=== PATIENT | female | born 1975 | race Caucasian/White ===

== ENCOUNTER → 2020-02-04 11:02 | Outpatient (CLI) | payer OTHER, SELFPAY ==
--- NOTE | ~2020-02-04 | MM_ITS ---
EXAMINATION: MM screening figueroa BI w julieth HISTORY: Screening mammogram TECHNIQUE: Craniocaudal and mediolateral oblique 3-D tomosynthesis images were obtained and synthetic 2-D images were generated. CAD analysis was submitted and interpreted. COMPARISON: No prior mammogram is available for comparison at this institution. BREAST PARENCHYMAL COMPOSITION: The breasts are heterogeneously dense, which may obscure small masses . FINDINGS: There is no evidence of suspicious mass, calcification, or architectural distortion to sugg est malignancy in either breast. There has been no suspicious interval change. IMPRESSION: 1. No mammographic evidence of malignancy. 2. Recommend routine screening mammography in one year. BI-RADS Category 1: Negative Reviewed, dictated and finalized at location A.
== END ==
PROVIDERS: Visit Provider Obstetrics & Gynecology
DX: Z12.31 Encounter for screening mammogram for malignant neoplasm of breast (principal)
CPT/HCPCS: 77063; 77067

== ENCOUNTER → 2020-02-07 18:07 | Outpatient (CLI) | payer OTHER, SELFPAY ==
--- NOTE | ~2020-02-07 | US_ITS ---
EXAMINATION: US pelvic complete w TV DATE: 02/07/2020 18:30 INDICATION: Excessive and frequent menstruation TECHNIQUE: Multiple transabdominal and endovaginal sonographic images of the pelvis were obtained. COMPARISON: None. FINDINGS: The uterus measures 7.2 x 4.7 x 5.7 cm. There are multiple isoechoic and hypoechoic lesions of the uterus, measuring up to 1.4 cm, with the appearance of intramural fibroids. One appears to co ntain calcification. The IUD appears to be in expected position. The endometrial complex measures 5 m m. The right ovary measures 2.3 x 2.6 x 2.1 cm. The left ovary measures 3.1 x 2.1 x 1.5 cm. There is normal vascular flow in the ovaries. There is no free fluid in the pelvis. IMPRESSION: 1. Multiple uterine fibroids. Reviewed, dictated and finalized at location A.
== END ==
PROVIDERS: Visit Provider Obstetrics & Gynecology
DX: N92.0 Excessive and frequent menstruation with regular cycle (principal); D25.9 Leiomyoma of uterus, unspecified
CPT/HCPCS: 76830; 76856

== ENCOUNTER 2020-10-17 10:26 | Emergency (ER) | payer OTHER, SELFPAY ==
[2020-10-17 10:37] VITALS: BP 131/82; PULSE 113; RESP 20; TEMP 36.6; O2SAT 100
--- NOTE | 2020-10-17 10:39 | ED.EAR ---
HPI - Ear Problem General Chief complaint: Ear Stated complaint: SORE THROAT Time Seen by Provider: 10/17/20 10:40 Source: patient Mode of arrival: ambulatory Limitations: no limitations History of Present Illness HPI Narrative: Tonya Roberts is a 45 yo female with no PMH who comes here with severe sore throat that started last night. No fever, cough, N/V/D, has been in house for 3 days, around no one. States has sinus issues and takes meds for same Related Data Allergies Allergy/AdvReac Type Severity Reaction Status Date / Time Sulfa (Sulfonamide Allergy Unknown Rash Verified 10/17/20 10:33 Antibiotics) Review of Systems Review of Systems: Narrative: CONSTITUTIONAL: Denies fever, chills, sweats. EYES: Denies visual changes, redness, discharge. ENT: Denies rhinorrhea, congestion, has severe sore throat, no otalgia. CARDIOVASCULAR: Denies chest pain, palpitations, edema. RESPIRATORY: Denies dyspnea, wheezing, cough GASTROINTESTINAL: Denies abdominal pain, nausea, vomiting, diarrhea. GENITOURINARY: Denies dysuria, hematuria, abnormal discharge SKIN: Denies rash or itching. NEUROLOGIC: Denies numbness, or focal weakness. PSYCHIATRIC: Denies anxiety or depression. [facility] Past Medical History Medical History No acute medical problems Family History Family History Mother Hypertension Social History Social History (Updated 10/17/20 @ 10:50 by Korin Lemos CNP) Smoking status: Former smoker Alcohol intake: current Comments At time of signature, I agree with nursing past medical, surgical, social and family history. There is no relevant family history pertinent to the presenting complaint. Exam Narrative: Exam Narrative: GENERAL: This is a well-nourished, well-developed patient, in moderate distress with swelling HEAD: normocephalic, atraumatic. EYES: clear/white. Vision is grossly intact. EARS: External ears normal, auditory canals clear and without drainage, TMs normal without perforation. Hearing grossly intact. NOSE: External nose normal without nasal discharge, nares with redness, no rhinorrhea. THROAT: Mucous membranes moist, posterior pharynx erythema with swelling on the right side NECK: Neck supple, large submandibular lymph node that is tender and enlarged CARDIOVASCULAR: Regular rate and rhythm without murmurs, gallops, or rubs. RESPIRATORY: Clear to auscultation. Breath sounds equal bilaterally. No wheezes, rales, or rhonchi. GASTROINTESTINAL: Abdomen soft, non-tender, SKIN: warm, intact with no suspicious lesions or rash, good texture and turgor. NEURO: awake, alert, and oriented to person, place and time. There were no obvious focal neurologic abnormalities. Steady gait EXTREMITIES: Normal range of motion. BACK: Nontender without deformity Course Course Emergency Course: Patient came to express care with severe sore throat particularly on the right Strep test showed negative--monitor symptoms for fever or other known Covid symptoms such as loss of taste or smell, start betty Tylenol ibuprofen for pain Started on prednisone, viscous lidocaine, betty- PCN- question if partonsillar abscrss due to location Directions to push fluids and finish medications as directed Vital Signs Vital signs: Vital Signs Temperature 97.9 F 10/17/20 10:37 Pulse Rate 113 H 10/17/20 10:37 Respiratory Rate 20 10/17/20 10:37 Blood Pressure 131/82 10/17/20 10:37 Pulse Oximetry 100 10/17/20 10:37 Temperature 97.9 F 10/17/20 10:37 Pulse Rate 113 H 10/17/20 10:37 Respiratory Rate 20 10/17/20 10:37 Blood Pressure 131/82 10/17/20 10:37 Pulse Oximetry 100 10/17/20 10:37 Medical Decision Making Differential Diagnosis Differential Diagnosis: Pharyngitis versus strep versus adenitis paratonsillar abscess Vital Signs Vital Signs: Vital Signs Temperature 97.9
== END 2020-10-17 11:12 | disposition home or self-care (01) ==
PROVIDERS: Emergency Provider Nurse Practitioner
DX: J02.9 Acute pharyngitis, unspecified (principal); Z20.828 Contact with and (suspected) exposure to other viral communicable diseases; Z87.891 Personal history of nicotine dependence
CPT/HCPCS: 87081; 87880; 99203; G0463

== ENCOUNTER 2020-10-17 11:12 | Outpatient (NON) | payer OTHER, SELFPAY ==
[2020-10-20 01:48] LABS: SARS-CoV-2 RNA PCR Negative
== END 2020-10-17 11:13 ==
LOC: ANHCOVIDDT 11:13
PROVIDERS: Visit Provider Nurse Practitioner
DX: J02.9 Acute pharyngitis, unspecified (principal); Z20.828 Contact with and (suspected) exposure to other viral communicable diseases
CPT/HCPCS: 87635; C9803; U0003

== ENCOUNTER → 2021-04-30 10:37 | Outpatient (CLI) | payer OTHER, SELFPAY ==
--- NOTE | ~2021-04-30 | MM_ITS ---
EXAMINATION: MM screening figueroa BI w julieth HISTORY: Screening mammogram TECHNIQUE: Craniocaudal and mediolateral oblique 3-D tomosynthesis images were obtained and synthetic 2-D images were generated. CAD analysis was submitted and interpreted. COMPARISON: 02/04/2020 bilateral digital screening mammogram BREAST PARENCHYMAL COMPOSITION: The breasts are heterogeneously dense, which may obscure small masses . FINDINGS: 6 mm circumscribed opacity in the lower inner right breast (MLO Tomosynthesis image 39/86). Otherwise there is no evidence of suspicious mass, calcification, or architectural distortion to sugg est malignancy in either breast. There has been no other suspicious interval change. IMPRESSION: 1. 6 mm circumscribed lower inner left breast mass 2. Diagnostic left mammogram and left breast ultrasound examination are recommended. BI-RADS Category 0: Incomplete: Needs additional imaging evaluation. Reviewed, dictated and finalized at location A. IMPRESSION: 1. 6 mm circumscribed lower inner left breast mass 2. Diagnostic left mammogram and left breast ultrasound examination are recomme nded. BI-RADS Category 0: Incomplete: Needs additional imaging evaluation.
== END ==
PROVIDERS: Visit Provider Obstetrics & Gynecology
DX: Z12.31 Encounter for screening mammogram for malignant neoplasm of breast (principal); R92.8 Other abnormal and inconclusive findings on diagnostic imaging of breast
CPT/HCPCS: 77063; 77067

== ENCOUNTER → 2021-06-05 09:11 | Outpatient (CLI) | payer OTHER, SELFPAY ==
--- NOTE | ~2021-06-05 | MMUS_ITS ---
EXAMINATION: MM diagnostic figueroa LT w julieth, US breast LT limited HISTORY: Left breast mass on screening mammogram TECHNIQUE: Additional 3-D tomosynthesis images of the left breast were performed and synthetic 2-D im ages were generated. CAD analysis was submitted and interpreted. High resolution limited left breast ultrasound was performed. COMPARISON: 04/30/2021, 02/04/2020 BREAST PARENCHYMAL COMPOSITION: The breasts are heterogeneously dense, which may obscure small masses . FINDINGS: MAMMOGRAPHIC FINDINGS: There is a 5 mm round, obscured, equal density mass in the anterior third of the inner breast at the 9:00 location 4.5 cm from the nipple. ULTRASOUND: There is a 10 mm x 6 mm oval, circumscribed, parallel, complex cystic and solid mass at the 9:00 loca tion 5 cm from the nipple with no posterior features or internal vascularity, possibly clustered micr ocysts. There is a 6 mm cyst at the 8:00 location 5 cm from the nipple and a 3 mm cyst at the 7:00 lo cation 6 cm from the nipple. IMPRESSION: 1. Likely clustered microcysts at the 9:00 location 5 cm from the nipple. 2. Recommend 6 month follow-up left diagnostic mammogram and ultrasound. BI-RADS category 3, probably benign findings. Reviewed, dictated and finalized at location A. IMPRESSION: 1. Likely clustered microcysts at the 9:00 location 5 cm from the nipple. 2. Recommend 6 month follow-up left diagnostic mammogram and ultrasound. BI-RADS category 3, probably benign findings.
== END ==
PROVIDERS: Visit Provider Obstetrics & Gynecology
DX: R92.8 Other abnormal and inconclusive findings on diagnostic imaging of breast (principal)
CPT/HCPCS: 76642; 77061; 77065; G0279

== ENCOUNTER → 2022-07-10 10:09 | Outpatient (CLI) | payer OTHER, SELFPAY ==
--- NOTE | ~2022-07-10 | MM_ITS ---
EXAMINATION: MM screening figueroa BI w julieth HISTORY: Screening mammogram TECHNIQUE: Craniocaudal and mediolateral oblique 3-D tomosynthesis images were obtained and synthetic 2-D images were generated. CAD analysis was submitted and interpreted. COMPARISON: 06/05/2021 diagnostic left mammogram and limited left breast ultrasound 04/30/2021 and 02/04/2020 bilateral screening mammogram examinations BREAST PARENCHYMAL COMPOSITION: The breasts are heterogeneously dense, which may obscure small masses . FINDINGS: There is no evidence of suspicious mass, calcification, or architectural distortion to sugg est malignancy in either breast. There has been no suspicious interval change. IMPRESSION: 1. No mammographic evidence of malignancy. 2. Recommend routine screening mammography in one year. BI-RADS Category 1: Negative Reviewed, dictated and finalized at location A.
== END ==
PROVIDERS: PCP Obstetrics & Gynecology; Visit Provider Obstetrics & Gynecology
DX: Z12.31 Encounter for screening mammogram for malignant neoplasm of breast (principal)
CPT/HCPCS: 77063; 77067

== ENCOUNTER → 2023-09-28 16:29 | Outpatient (CLI) | payer OTHER, SELFPAY ==
--- NOTE | ~2023-09-28 | MM_ITS ---
EXAMINATION: MM screening figueroa BI w julieth HISTORY: Screening TECHNIQUE: Craniocaudal and mediolateral oblique 3-D tomosynthesis images were obtained and synthetic 2-D images were generated. CAD analysis was submitted and interpreted. COMPARISON: Comparison to multiple prior studies sequentially, with oldest reviewed study dated 02/03. BREAST PARENCHYMAL COMPOSITION: The breasts are heterogeneously dense, which may obscure small masses FINDINGS: There is no evidence of suspicious mass, calcification, or architectural distortion to sugg est malignancy in either breast. There has been no suspicious interval change. IMPRESSION: 1. No mammographic evidence of malignancy. 2. Recommend routine screening mammography in one year. BI-RADS Category 1: Negative Reviewed, dictated and finalized at location A. ITY TELLER
== END ==
PROVIDERS: PCP Obstetrics & Gynecology; Visit Provider Obstetrics & Gynecology
DX: Z12.31 Encounter for screening mammogram for malignant neoplasm of breast (principal)
CPT/HCPCS: 77063; 77067

== ENCOUNTER 2024-04-05 08:04 | Outpatient (CLI) | payer OTHER, SELFPAY ==
--- NOTE | ~2024-04-05 | US_ITS ---
EXAMINATION: US pelvic complete w TV DATE: 04/05/2024 08:58 INDICATION: Abnormal uterine vaginal bleeding TECHNIQUE: Multiple transabdominal and endovaginal sonographic images of the pelvis were obtained. COMPARISON: None. FINDINGS: The uterus measures 7.5 x 4.8 x 5.1 cm. There is a combination of small hypoechoic and hyperechoic fi broids in the uterus the largest at the fundus appearing hypoechoic measuring 1.[address] maximal [address] ter. The next largest is a 1.4 similar fibroid also at the fundus which is more hyperechoic with shad owing calcification. The endometrial complex measures 8 mm in thickness. There is a T-shaped linear e chogenic and shadowing IUD within the endometrial canal. On the cine sagittal images of the uterus th ere appears to be an ovoid solid nodular soft tissue density within the endometrial canal measuring a pproximately 2.2 x 0.6 cm with internal vascular flow on color Doppler. There are multiple small hype rechoic and shadowing calcifications within the endometrial complex some of which are within the cent ral soft tissue. The right ovary measures 2.3 x 1.1 x 1.2 cm. The left ovary measures 1.8 x 1.2 x 1.2 cm. 11 mm anechoic follicle in the right ovary. There is normal vascular flow in both ovaries. There is no free fluid in the pelvis. IMPRESSION: 1. Fibroid uterus with a 2.2 x 0.6 cm vascular soft tissue nodules within the endometrial canal sugge stive of either an endometrial polyp or submucosal fibroid although differential would include endome trial hyperplasia or carcinoma. Consider hysteroscopy for further evaluation. 2. IUD in expected position within the endometrial canal. Reviewed, dictated and finalized at location B. IMPRESSION: 1. Fibroid uterus with a 2.2 x 0.6 cm vascular soft tissue nodules within the e ndometrial canal suggestive of either an endometrial polyp or submucosal fibroi d although differential would include endometrial hyperplasia or carcinoma. Con certified ophthalmic technician hysteroscopy for further evaluation. 2. IUD in expected position within the endometrial canal.
== END 2024-04-05 08:05 | disposition home or self-care (01) ==
PROVIDERS: PCP Family Medicine; Visit Provider Student in an Organized Health Care Education/Training Program
DX: N93.9 Abnormal uterine and vaginal bleeding, unspecified (principal); D25.9 Leiomyoma of uterus, unspecified; Z97.5 Presence of (intrauterine) contraceptive device
CPT/HCPCS: 76830; 76856

== ENCOUNTER 2024-05-30 01:00 | Day surgery (SDC) | payer OTHER, SELFPAY ==
[2024-05-19 08:58] VITALS: BMI 28.9
--- NOTE | 2024-05-19 09:04 | PC.NURSE ---
Report to the Outpatient Waiting Room, entrance under the green pavilion located off [facility], at time _0800_ on date _[id number]_. Planned Procedure Time: _1000_. Time changes happen often and if your time is changed the preop area will call you the afternoon before. - You and your visitor will be asked to self-screen and do not enter if you have any COVID symptoms. - A mask is optional within the hospital at this time. Patients may have clear liquids (water, carbonated beverages, clear teas, apple juice) until 3 hours prior to surgery with a maximum of 20 ounces. - No food from midnight until time of surgery - Infants may have breast milk until 4 hours before surgery, formula 6 hours prior to surgery. - Children will be allowed to drink immediately following surgery. If applicable, please bring a bottle or sippy cup to assist with drinking. Juice, water, soda, and popsicles are readily available. For infants on formula, please bring formula the day of surgery. Pacifiers are allowed. Take the following medications with a SIP of water the morning of surgery: ____Levothyroxine DO NOT STOP ANY OF YOUR OTHER PRESCRIPTION MEDICATIONS PRIOR TO SURGERY ?EXCEPT THE FOLLOWING Medications to discontinue per physician Multivitamin Date to take last psle___[id number] Please no make-up, nail slovenian, hairspray, perfume, deodorant, or body powder the day of surgery. No jewelry (including any body piercings) or valuables the day of surgery, leave them at home. Please take a shower or bath the night before, or the morning of, surgery with an antibacterial soap. Wear comfortable, loose fitting clothing. - Jewelry must be removed prior to entering the operating room. Rings and piercings that are not removed may be cut off. - The hospital will not accept responsibility for valuables. - Please leave all valuables, including medications, at home the day of surgery. If you are going home after surgery, a licensed utility driver must drive you home. - NO public transportation without another adult if you receive anesthesia. - We recommend that an adult stay with you for 24 hours following discharge. - We also recommend that you do not drive, make important decision, drink alcoholic beverages, or take any drugs that were not prescribed by your health care provider for at least 24 hours after your discharge time. Follow any additional instructions given to you from your surgeon. If you or anyone in your household have experienced Covid symptoms in the past week, please notify your surgeon or the nurse liaison at the phone number below for possible testing. Telephone instructions given to _Denise____and asked if any additional questions and then verbalized understanding. Patient advised to call surgeon office or pre surgery nurse liaison [phone] if any additional questions.
--- NOTE | 2024-05-30 06:41 | WPDHPUPDATE1 ---
History and Physical Update Update Date/Time: 05/30/24 06:41 History and Physical has been reviewed, including an updated exam of the patient. There are NO changes in the patient's condition. Risks, benefits, and alternatives have been discussed and questions answered. Patient agrees to proceed with HSC/D&C/IUD removal.
[2024-05-30 08:30] VITALS: BP 151/87; PULSE 79; RESP 14; TEMP 36.8; O2SAT 99
[2024-05-30] MEDS: ACETAMINOPHEN 500 MG TABLET 1000 MG PO (08:30)
[2024-05-30] MEDS: LACTATED RINGERS 1,000 ML 30 ML IV CONT (08:30)
--- NOTE | 2024-05-30 09:44 | WPDANESEPPF ---
Anes - Initial Pre Proc Eval Procedure: Operation Date: 05/30/24 10:00 Proposed Procedures p Hysteroscopy Dilation and Curettage with Intrauterine Device Removal - Veronika Toney MD Date/Time: 05/30/24 09:44 Surgeon: Veronika Toney MD Pre Op Diagnosis: abnormal uterine bleeding Patient Data Age: 48 Gender: F Height: 1.83 m Weight: 95.5 kg Last Vital Signs Temp 98.3 F 05/30/24 08:30 Pulse 79 05/30/24 08:30 Resp 14 05/30/24 08:30 BP 151/87 H 05/30/24 08:30 Pulse Ox 99 05/30/24 08:30 O2 Del Method Room Air 05/30/24 08:30 Allergies Allergy/AdvReac Type Severity Reaction Status Date / Time Sulfa (Sulfonamide Allergy Unknown Rash Verified 05/30/24 08:45 Antibiotics) Home Medications Medication Instructions Recorded Confirmed Type levonorgestrel 21 mcg/24 hr (up to 1 device intrauterine ONCE 02/19/22 05/19/24 History 8 years) 52 mg intrauterine device (Mirena) [id number] 8 mg-folic 400 1 tablet PO DAILY 03/04/23 05/19/24 History mcg-K 50 mcg-lutein 300 mcg tablet (Multivitamin Women 50 Plus) levothyroxine 50 mcg tablet 50 mcg PO DAILY #90 tabs 03/09/24 05/30/24 Rx cetirizine 10 mg tablet (Zyrtec) 10 mg PO DAILY 05/19/24 05/19/24 History Patient hx anesthesia problems: none Family hx anesthesia problems: none Results Review: All pre-operative results and documents have been reviewed as part of the pre-operative evaluation. 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 Seasonal allergic rhinitis Surgical History Surgical History H/O gynecological procedure Mirena IUD Insertion 01/04/2020 History of colposcopy (~2020) Hx of appendectomy (~2007) Family History Family History Mother Hypertension Father Lung cancer Social History Social History (Updated 05/03/24 @ 08:11 by Bertha John MA) Smoking packs per day: 1 Smoking cigarettes per day: 20.0 Years smoked: 20 Smoking pack-years: 20.00 Smoking status: Former smoker Tobacco type: cigarettes Smoking end date: 05/19/12 Alcohol intake: current Drinks per week: 12 Alcohol use details: socially Substance use: never Substance use type: does not use Do You Feel Safe in your Home?: Yes Lack of Transportation: No Lack of Food: Never True Current Housing: I Have Housing Concerned About Future Housing: No Difficulty Paying Gas/Electric Bills: No Difficulty Paying for Meds: No Currently Unemployed: No Education: Bachelor's Degree Difficulty w/ Childcare or Family Care: No Living arrangements: with family Occupation/Education: occupation Additional occupation/education comments: Legal asst Gender identity (if verbalized by the patient): Female Sexual Orientation (if Verbalized by the Patient): Straight or Heterosexual Spiritual care concerns: No Agree to blood products: Yes Anes - Eval Final PreProcedure Day of Procedure 05/30/24 09:44 Patient weight: normal Heart: regular rate and rhythm Lungs: clear to auscultation Airway: Mallampati scale class II Neurological: alert and oriented Last oral intake: >/= 8 hours ASA classification: II Emergent: no Anesthetic plan: proceed Anesthesia type and monitoring: general GIVS and standard monitoring Results Review: All pre-operative results and documents have been reviewed as part of the pre-operative evaluation. Informed Consent: The patient's anesthetic plan and its attendant risks and benefits were discussed with the patient/family/POA. Questions were solicited and answers provided to the satisfaction of the patient/family/POA.
--- NOTE | 2024-05-30 10:54 | W.PM.PROC2 ---
Procedure Note - Detailed Date of Procedure 05/30/24 Pre-op Diagnosis abnormal uterine bleeding Post-op Diagnosis Same Procedure Performed Hysteroscopy, D&C, with IUD removal Surgeon Veronika Toney MD Anesthesia MAC Indications IUD strings visualized; IUD removed w/o issue -- discarded in OR after verification that the whole IUD was removed. Normal uterine cavity; slightly increased/fluffy endometrium at the fundus noted. Bilateral tubal ostia visualized. Good hemostasis at end of case. Description of Procedure Tonya was taken to the operating room where she was placed under sedation without complications. She was then prepped and draped in the usual sterile fashion in the dorsal lithotomy position with her legs in low Toni stirrups. A time-out was performed and no perioperative antibiotics were indicated. A bivalve speculum was placed within the vagina where the cervix was easily identified. The IUD strings were easily visible and grasped with a polyp forceps and easily removed. The IUD was examined and found to be intact/removed in whole, and was discarded. The anterior lip of the cervix was grasped with a single-tooth tenaculum. The cervix was then serially dilated to allow for the hysteroscope. The hysteroscope was advanced into the uterine cavity with the above findings noted. A curettage was then performed until a good uterine cry was felt throughout the uterus. Good hemostasis was noted. All instruments were removed from the vagina. Sponge, lap, instrument, and needle counts were correct at the end of the procedure. Patient was awoken from anesthesia and taken to recovery with plans of same-day discharge home. Estimated Blood Loss 10 IV Fluids 800 Pathology Yes (endometrial curettings) Complications No immediate complications Condition Stable Disposition Same day [facility] Billing Surgery - Charge Forward: Surgery Billing
[2024-05-30 10:58] VITALS: BP 129/79; PULSE 86; RESP 14; O2SAT 97
[2024-05-30 11:30] VITALS: BP 139/75; PULSE 65; RESP 16
== END 2024-05-30 11:45 | disposition home or self-care (01) ==
PROVIDERS: PCP Family Medicine; Visit Provider Obstetrics & Gynecology
PROC: 0U5B8ZZ Destruction of Endometrium, Via Natural or Artificial Opening Endoscopic (ICD-10-PCS; CPT 58563; principal; 2024-05-30 10:00)
DX: N93.9 Abnormal uterine and vaginal bleeding, unspecified (principal); Z30.432 Encounter for removal of intrauterine contraceptive device; N71.1 Chronic inflammatory disease of uterus; N72 Inflammatory disease of cervix uteri; N87.9 Dysplasia of cervix uteri, unspecified; E06.3 Autoimmune thyroiditis; Z87.891 Personal history of nicotine dependence
CPT/HCPCS: 58558; 58301; 88305; A9270; J2250; J2704; J3010; J7120

== ENCOUNTER 2024-09-30 15:31 | Outpatient (CLI) | payer OTHER, SELFPAY ==
--- NOTE | ~2024-09-30 | MM_ITS ---
EXAMINATION: MM screening figueroa BI w julieth HISTORY: Screening TECHNIQUE: Craniocaudal and mediolateral oblique 3-D tomosynthesis images were obtained and synthetic 2-D images were generated. CAD analysis was submitted and interpreted. COMPARISON: Comparison to multiple prior studies sequentially, with oldest reviewed study dated 02/03. BREAST PARENCHYMAL COMPOSITION: Not dense: There are scattered areas of fibroglandular density. FINDINGS: There is no evidence of suspicious mass, calcification, or architectural distortion to sugg est malignancy in either breast. There has been no suspicious interval change. IMPRESSION: 1. No mammographic evidence of malignancy. 2. Recommend routine screening mammography in one year. BI-RADS Category 1: Negative Reviewed, dictated and finalized at location B. TY AGRICULTURAL AGENT
== END 2024-09-30 15:32 | disposition home or self-care (01) ==
LOC: MICIMG 15:31
PROVIDERS: PCP Obstetrics & Gynecology; Visit Provider Obstetrics & Gynecology
DX: Z12.31 Encounter for screening mammogram for malignant neoplasm of breast (principal)
CPT/HCPCS: 77063; 77067

== ENCOUNTER 2025-07-04 02:38 | Day surgery (SDC) | payer BC, SELFPAY ==
[2025-06-16 13:21] VITALS: BMI 27.8
--- OUTSIDE RECORDS SUMMARY | 2025-07-04 02:40 | XMS_ITS | Clinical Summary ---
Author Organization [facility] Address [address] [place] [id number] Care Team Providers Care Bending Shed Worker Name Role Phone Unavailable Primary Care Provider Unavailabl e Social History Tobacco Use Types Packs/Day Years Used Date Smoking Tobacco: Never Assessed Comments Unknown Sex and Gender Information Value Date Recorded Sex Assigned at Not on file Legal Sex Female 7:35 PM CDT Gender Identity Not on file Sexual Orientation Not on file Plan of Treatment Health Maintenance Due Date Last Done Comments Cervical Cancer Screening Pa p Smear (Age 30 to 64) Every 3 Years 1975 Colorectal Cancer Screening Colonoscopy (10 Years) 1975 Annual Physical 1978 Hepatitis C 1993 DTaP, Tdap and Td Vaccines ( 1 - Tdap) 1994 Hepatitis B Vaccines (1 of 3 - 19+ 3-dose series) 1994 Cervical Cancer Screening Pa p with HPV Testing (Age 30 to 64) Every 5 Years 2005 Cervical Cancer Screening with HPV 2005 Mammogram Screening 2015 COVID-19 Vaccine (2023-2 5 season) 2024 Meningococcal B Vaccine Aged Out No l onger eligible based on patient's age to complete this topic Meningococcal Vaccine Aged Out No shayan azul eligible based on patient's age to complete this topic Pneumococcal Vaccine: Pediat rics (0 to 5 Years) and At-Risk Patients (6 to 49 Years) Aged Out No longer eligible b ased on patient's age to complete this topic RSV Immunizations Under 20 Months Aged Out No longer eligible based on patient's age to complete this topic
--- NOTE | 2025-07-04 06:55 | P.PNAN_ITS ---
Anes - Initial Pre Proc Eval Procedure: Operation Date: 07/04/25 10:00 Proposed Procedures p Screening Colonoscopy - Neal Palma MD Date/Time: 07/04/25 06:55 Surgeon: Neal Palma MD Pre Op Diagnosis: Screening Patient Data Age: 49 Gender: F Height: 1.83 m Weight: 93 kg Allergies Allergy/AdvReac Type Severity Reaction Status Date / Time Sulfa (Sulfonamide Allergy Unknown Rash Verified 07/04/25 08:38 Antibiotics) Home Medications ?Medication ?Instructions ?Recorded ?Confirmed ?Type [id number] 8 mg-folic 400 1 tablet PO DAILY 03/04/23 07/04/25 History mcg-K 50 mcg-lutein 300 mcg tablet (Multivitamin Women 50 Plus) cetirizine 10 mg tablet (Zyrtec) 10 mg PO DAILY 05/19/24 07/04/25 History levothyroxine 50 mcg tablet 50 mcg PO DAILY #90 tabs 05/01/25 07/04/25 Rx drospirenone (contraceptive) 4 mg 1 tablet PO DAILY #84 tabs 06/30/25 07/04/25 Rx (28) tablet (Slynd) Patient hx anesthesia problems: none Family hx anesthesia problems: none Results Review: All pre-operative results and documents have been reviewed as part of the pre- operative evaluation. 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 Hypothyroidism History of MRSA infection 2010 - right buttock abscess 2011 - abscess perineum Chronic pain of right knee Surgical History Surgical History History of hysteroscopy D & C/IUD removal H/O gynecological procedure Mirena IUD Insertion 01/04/2020 History of colposcopy (~2020) Hx of appendectomy (~2007) Family History Family History Mother Hypertension Father Lung cancer Social History Social History (Updated 07/04/25 @ 09:15 by Inocente Souza DO) Smoking packs per day: 1 Smoking cigarettes per day: 20.0 Years smoked: 20 Smoking pack-years: 20.00 Smoking status: Former smoker Tobacco type: cigarettes Smoking end date: 03/19/12 Alcohol intake: current Drinks per week: 12 Alcohol use details: socially Substance use: current Substance use type: marijuana Other substance usage details: daily Do You Feel Safe in your Home?: Yes Lack of Transportation: No Lack of Food: Never True Current Housing: I Have Housing Concerned About Future Housing: No Difficulty Paying Gas/Electric Bills: No Difficulty Paying for Meds: No Currently Unemployed: No Education: Bachelor's Degree Difficulty w/ Childcare or Family Care: No Living arrangements: alone Occupation/Education: occupation Additional occupation/education comments: Legal asst Gender identity (if verbalized by the patient): Female Sexual Orientation (if Verbalized by the Patient): Straight or Heterosexual Spiritual care concerns: No Agree to blood products: Yes Anes - Eval Final PreProcedure Day of Procedure 07/04/25 06:55 Patient weight: overweight Heart: regular rate and rhythm Lungs: clear to auscultation Airway: Mallampati scale class II Neurological: alert and oriented Last oral intake: >/= 8 hours ASA classification: III Emergent: no Anesthetic plan: proceed Anesthesia type and monitoring: general GIVS and standard monitoring Results Review: All pre-operative results and documents have been reviewed as part of the pre- operative evaluation. Informed Consent: The patient's anesthetic plan and its attendant risks and benefits were discussed with the patient/family/POA. Questions were solicited and answers provided to the satisfaction of the patient/family/POA.
[2025-07-04 08:32] VITALS: BP 145/95; PULSE 89; RESP 16; TEMP 36.5; O2SAT 99; BMI 27.6
[2025-07-04 08:47] LABS: BEDSIDEPREGUCG Negative (Negative)
[2025-07-04] MEDS: LACTATED RINGERS 1,000 ML 150 ML IV CONT (08:51)
--- NOTE | 2025-07-04 09:35 | PM.IMHP ---
H&P: HPI History of Present Illness Date/Time: 07/04/25 09:35 Chief Complaint: Screening colonoscopy Narrative: This is the patient's first colonoscopy. There are no GI symptoms and there is no family history of colorectal cancer. 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 Hypothyroidism History of MRSA infection 2010 - right buttock abscess 2011 - abscess perineum Chronic pain of right knee Surgical History Surgical History History of hysteroscopy D & C/IUD removal H/O gynecological procedure Mirena IUD Insertion 01/04/2020 History of colposcopy (~2020) Hx of appendectomy (~2007) Family History Family History Mother Hypertension Father Lung cancer Social History Social History (Updated 07/04/25 @ 09:15 by Inocente Souza DO) Smoking packs per day: 1 Smoking cigarettes per day: 20.0 Years smoked: 20 Smoking pack-years: 20.00 Smoking status: Former smoker Tobacco type: cigarettes Smoking end date: 03/19/12 Alcohol intake: current Drinks per week: 12 Alcohol use details: socially Substance use: current Substance use type: marijuana Other substance usage details: daily Do You Feel Safe in your Home?: Yes Lack of Transportation: No Lack of Food: Never True Current Housing: I Have Housing Concerned About Future Housing: No Difficulty Paying Gas/Electric Bills: No Difficulty Paying for Meds: No Currently Unemployed: No Education: Bachelor's Degree Difficulty w/ Childcare or Family Care: No Living arrangements: alone Occupation/Education: occupation Additional occupation/education comments: Legal asst Gender identity (if verbalized by the patient): Female Sexual Orientation (if Verbalized by the Patient): Straight or Heterosexual Spiritual care concerns: No Agree to blood products: Yes Meds Home Medications and Allergies Home Medications ?Medication ?Instructions ?Recorded ?Confirmed ?Type [id number]-[id number]-[id number] 8 mg-folic 400 1 tablet PO DAILY 03/04/23 07/04/25 History mcg-K 50 mcg-lutein 300 mcg tablet (Multivitamin Women 50 Plus) cetirizine 10 mg tablet (Zyrtec) 10 mg PO DAILY 05/19/24 07/04/25 History levothyroxine 50 mcg tablet 50 mcg PO DAILY #90 tabs 05/01/25 07/04/25 Rx drospirenone (contraceptive) 4 mg 1 tablet PO DAILY #84 tabs 06/30/25 07/04/25 Rx (28) tablet (Slynd) Allergies Allergy/AdvReac Type Severity Reaction Status Date / Time Sulfa (Sulfonamide Allergy Unknown Rash Verified 07/04/25 08:38 Antibiotics) Vital Signs Vital Signs - 24 hr 07/04/25 08:32 Temperature 97.7 F Pulse Rate 89 Respiratory Rate 16 Blood Pressure 145/95 H Pulse Oximetry 99 Oxygen Delivery Room Air Exam Const: General: cooperative and healthy appearing Resp: Effort & Inspection: normal respiratory effort and able to speak in complete sentences Auscultation: clear to auscultation bilaterally Cardio: Rate: regular rate Rhythm: regular rhythm GI: Inspection: normal to inspection GI Palp: No No hepatosplenomegaly present Auscultation: normal bowel sounds Rectal Exam: deferred Skin: General skin exam: normal color Psych: Appearance: grossly normal Mental Status: mental status grossly normal Assessment and Plan Assessment and plan (1) Encounter for screening colonoscopy: Code(s): Z12.11 - Encounter for screening for malignant neoplasm of colon Status: Acute Assessment and Plan: The patient is deemed a good candidate for the procedure. Consent signed. Will proceed.
[2025-07-04 10:00] VITALS: BP 128/83; PULSE 79; RESP 17; O2SAT 99
[2025-07-04 10:10] VITALS: BP 131/83; PULSE 70; RESP 20; O2SAT 96
[2025-07-04 10:20] VITALS: BP 136/89; PULSE 72; RESP 20; O2SAT 100
== END 2025-07-04 10:24 | disposition home or self-care (01) ==
PROVIDERS: Anesthesiology; PCP Family Medicine; Referring Provider Family Medicine; Visit Provider Internal Medicine Gastroenterology
PROC: 0DJD8ZZ Inspection of Lower Intestinal Tract, Via Natural or Artificial Opening Endoscopic (ICD-10-PCS; CPT 45378; principal; 2025-07-04 10:00)
DX: Z12.11 Encounter for screening for malignant neoplasm of colon (principal); E03.9 Hypothyroidism, unspecified; G89.29 Other chronic pain; M25.561 Pain in right knee; F12.90 Cannabis use, unspecified, uncomplicated; Z98.890 Other specified postprocedural states; Z87.891 Personal history of nicotine dependence; Z80.1 Family history of malignant neoplasm of trachea, bronchus and lung
CPT/HCPCS: 45378; J2704; J7120